=== PATIENT | female | born 1935 | race Caucasian/White ===

== ENCOUNTER 2024-01-13 22:15 | Inpatient (IN) | payer MEDICARE ==
[~2024-01-13] VITALS: Ht 157.5 cm; Wt 73.9 kg
[2024-01-13 23:03] LABS: CALCIUM 9.3 mg/dL (8.5-10.1); CARBON DIOXIDE 34 mmol/L (21-32); CHLORIDE 101 mmol/L (98-107); CREATININE 1.2 mg/dL (0.6-1.3); GLUCOSE 133 mg/dL (74-106); POTASSIUM 3.9 mmol/L (3.5-5.1); SODIUM SERUM 140 mmol/L (136-145); UREA NITROGEN, BLOOD 40 mg/dL (7-18)
[2024-01-13 23:17] LABS: ALANINE AMINOTRANSFERASE 15 U/L (14-59); ALBUMIN 2.9 g/dL (3.4-5.0); ALKALINE PHOSPHATASE 135 U/L (50-136); ASPARTATE AMINOTRANSFERASE 26 U/L (15-37); BILIRUBIN,DIRECT 1.3 mg/dL (0.0-0.2); BILIRUBIN,TOTAL 2.3 mg/dL (0.2-1.0); NT-PRO BNP 4611 pg/mL (0-125); TOTAL PROTEIN, SERUM 6.1 g/dL (6.4-8.2)
[2024-01-13] MEDS: FUROSEMIDE 20 MG/2 ML VIAL IV ONE (23:38)
[2024-01-13] MEDS ORDERED: BENZONATATE 100 MG CAPSULE ONE (23:50)
[2024-01-13] MEDS: BENZONATATE 100 MG CAPSULE PO ONE (23:53)
[2024-01-14 00:13] LABS: BASOPHILS % (AUTO) 0.1 % (0.0-2.0); EOSINOPHILS # (AUTO) 0.1 K/uL (0.0-0.7); EOSINOPHILS % (AUTO) 1.1 % (0.0-7.0); HEMATOCRIT 33.9 % (31.2-41.9); HEMOGLOBIN 10.6 g/dL (10.9-14.3); LYMPHOCYTES # (AUTO) 1.3 K/uL (0.8-4.8); LYMPHOCYTES % (AUTO) 11.5 % (20.5-51.5); MEAN CORPUSCULAR HEMOGLOBIN 26.8 uug (24.7-32.8); MEAN CORPUSCULAR HGB CONC 31 g/dL (32.3-35.6); MEAN CORPUSCULAR VOLUME 85.5 fL (75.5-95.3); MONOCYTES # (AUTO) 1.1 K/uL (0.1-1.30); MONOCYTES % (AUTO) 9.7 % (0.0-11.0); NEUTROPHILS # (AUTO) 8.6 K/uL (1.8-8.9); NEUTROPHILS % (AUTO) 77.6 % (38.5-71.5); PLATELET COUNT (AUTO) 95 K/uL (179-408); RED BLOOD CELL COUNT(AUTO) 3.96 MIL/uL (3.63-4.92); RED CELL DISTRIBUTION WIDTH 22.2 % (12.3-17.7); WHITE BLOOD COUNT (AUTO) 11.1 K/uL (3.8-11.8)
[2024-01-14 00:17] LABS: DIFFERENTIAL COMMENT 1
[2024-01-14] MEDS ORDERED: FURO40TA5 PO (04:17)
[2024-01-14] MEDS ORDERED: PANT40TA49 PO (04:17)
[2024-01-14] MEDS ORDERED: MAGN400T40 PO (04:17)
[2024-01-14] MEDS ORDERED: [UNRECOGNIZED DRUG - OTHER] ALT NOSTRI (04:17)
[2024-01-14] MEDS ORDERED: SENN8.6T19 PO (04:17)
[2024-01-14] MEDS ORDERED: HYDR-894 PO (04:17)
[2024-01-14] MEDS ORDERED: FERR325T28 PO (04:17)
[2024-01-14] MEDS ORDERED: LEVO100T10 PO (04:17)
[2024-01-14] MEDS ORDERED: MAGN400O6 PO (04:17)
[2024-01-14] MEDS ORDERED: PHENOL ALT NOSTRI (04:17)
[2024-01-14] MEDS ORDERED: ACET-73 PO (04:17)
[2024-01-14] MEDS ORDERED: ASPI81TA31 PO (04:17)
[2024-01-14] MEDS ORDERED: NA P133E RC (04:17)
[2024-01-14] MEDS ORDERED: POTA-88 PO (04:17)
[2024-01-14] MEDS ORDERED: MULT-225 PO (04:17)
[2024-01-14] MEDS ORDERED: MELA3CAP2 PO (04:17)
[2024-01-14] MEDS ORDERED: BISA10SU61 RC (04:17)
[2024-01-14] MEDS ORDERED: CLOTRIMAZOLE PO (04:17)
[2024-01-14] MEDS ORDERED: CARV6.252 PO (04:17)
[2024-01-14] MEDS ORDERED: ROSU20TA2 PO (04:17)
[2024-01-14] MEDS ORDERED: REMEDY ESSENTIAL ZINC PASTE 113 GM TP PRN (04:30)
[2024-01-14] MEDS ORDERED: ONDANSETRON 4 MG/2 ML VIAL IV PRN (04:30)
[2024-01-14] MEDS ORDERED: MAGNESIUM HYDROXIDE 30 ML LIQUID UDC PO PRN ×2 (04:30→05:15)
[2024-01-14] MEDS ORDERED: SENNOSIDES 1 TABLET PO PRN (05:15)
[2024-01-14] MEDS ORDERED: hydrALAZINE HCL 25 MG TABLET PO PRN (05:15)
[2024-01-14] MEDS ORDERED: BISACODYL 10 MG SUPP.RECT RC PRN (05:15)
[2024-01-14] MEDS ORDERED: FLEET ENEMA 133 ML BOTTLE RC PRN (05:15)
[2024-01-14] MEDS ORDERED: Medication Not On Formulary EA (Melatonin 3 MG) PO PRN (05:15)
[2024-01-14] MEDS ORDERED: MELATONIN 3 MG TABLET PO PRN (06:00)
[2024-01-14] MEDS: LEVOTHYROXINE SODIUM 100 MCG TABLET PO SCH (06:21)
[2024-01-14] MEDS: PANTOPRAZOLE SODIUM 40 MG TABLET.DR PO SCH (06:22)
[2024-01-14 08:07] VITALS: BP 142/83; TEMP 97.6; O2SAT 100
[2024-01-14] MEDS ORDERED: Medication Not On Formulary EA (Multivitamins (Multiple Vitamin) 1 EACH) PO SCH (09:00)
[2024-01-14] MEDS ORDERED: FUROSEMIDE 40 MG TABLET PO SCH (09:00)
[2024-01-14] MEDS ORDERED: POTASSIUM CHLORIDE 40 MEQ PO SCH (09:00)
[2024-01-14] MEDS: CARVEDILOL 6.25 MG TABLET PO SCH (09:11)
[2024-01-14] MEDS: FUROSEMIDE 20 MG/2 ML VIAL IV SCH (09:12)
[2024-01-14] MEDS: MULTIVIT, IRON, MIN NO. 8, FA TABLET PO SCH (09:12)
[2024-01-14 10:29] LABS: BILIRUBIN,DIRECT 1.5 mg/dL (0.0-0.2); BILIRUBIN,TOTAL 2.9 mg/dL (0.2-1.0); CALCIUM 9.4 mg/dL (8.5-10.1); CREATININE 1.2 mg/dL (0.6-1.3); MAGNESIUM 1.7 mg/dL (1.8-2.4); PHOSPHOROUS 2.6 mg/dL (2.5-4.9); POTASSIUM 3.6 mmol/L (3.5-5.1); TOTAL PROTEIN, SERUM 6.2 g/dL (6.4-8.2)
[2024-01-14 11:05] LABS: THYROID STIMULATING HORMONE 10.232 mIU/mL (0.358-3.740)
[2024-01-14 12:00] VITALS: BP 97/59; TEMP 97.6; O2SAT 100
[2024-01-14] MEDS: ASPIRIN 81 MG TAB.CHEW PO SCH (13:27)
[2024-01-14 14:29] LABS: BASOPHILS % (AUTO) 0.1 % (0.0-2.0); EOSINOPHILS # (AUTO) 0.1 K/uL (0.0-0.7); EOSINOPHILS % (AUTO) 0.9 % (0.0-7.0); HEMATOCRIT 33.5 % (31.2-41.9); HEMOGLOBIN 10.4 g/dL (10.9-14.3); LYMPHOCYTES # (AUTO) 0.7 K/uL (0.8-4.8); LYMPHOCYTES % (AUTO) 7.9 % (20.5-51.5); MEAN CORPUSCULAR HEMOGLOBIN 26.6 uug (24.7-32.8); MEAN CORPUSCULAR HGB CONC 31 g/dL (32.3-35.6); MEAN CORPUSCULAR VOLUME 85.4 fL (75.5-95.3); MONOCYTES # (AUTO) 0.7 K/uL (0.1-1.30); MONOCYTES % (AUTO) 7.8 % (0.0-11.0); NEUTROPHILS # (AUTO) 7.2 K/uL (1.8-8.9); NEUTROPHILS % (AUTO) 83.3 % (38.5-71.5); PLATELET COUNT (AUTO) 80 K/uL (179-408); RED BLOOD CELL COUNT(AUTO) 3.92 MIL/uL (3.63-4.92); RED CELL DISTRIBUTION WIDTH 23.6 % (12.3-17.7); WHITE BLOOD COUNT (AUTO) 8.7 K/uL (3.8-11.8)
[2024-01-14 16:00] VITALS: BP 124/59; TEMP 97.6; O2SAT 98
[2024-01-14] MEDS: FERROUS SULFATE 325 MG TABEC PO SCH (16:48)
[2024-01-14] MEDS: MAGNESIUM OXIDE 400 MG TABLET PO SCH (16:48)
[2024-01-14] MEDS: ACETAMINOPHEN 325 MG TABLET PO PRN (19:48)
[2024-01-14 19:50] VITALS: BP 112/66; TEMP 97.7; O2SAT 97
[2024-01-14] MEDS: ATORVASTATIN 40 MG TABLET PO SCH (20:21)
[2024-01-14] MEDS ORDERED: Medication Not On Formulary EA (Rosuvastatin Calcium (Crestor) 20 MG) PO SCH (21:00)
[2024-01-14 23:40] VITALS: BP 124/63; TEMP 97.3; O2SAT 97
[2024-01-15] VITALS (9 sets, daily range): BP systolic 98–117; BP diastolic 41–58; TEMP 97–98.6; O2SAT 96–99
[2024-01-15] MEDS: LEVOTHYROXINE SODIUM 150 MCG TABLET PO SCH (06:08)
[2024-01-15 06:50] LABS: ALBUMIN 2.5 g/dL (3.4-5.0); BILIRUBIN,DIRECT 1.6 mg/dL (0.0-0.2); BILIRUBIN,TOTAL 2.8 mg/dL (0.2-1.0); CREATININE 1.1 mg/dL (0.6-1.3); POTASSIUM 3.3 mmol/L (3.5-5.1); TOTAL PROTEIN, SERUM 5.4 g/dL (6.4-8.2)
[2024-01-15] MEDS: FUROSEMIDE 40 MG TABLET PO SCH (08:45)
[2024-01-15] MEDS: IPRATROPIUM BROMIDE 0.5 MG/2.5 ML NEBU NEB SCH (13:30)
[2024-01-15] MEDS: ALBUTEROL SULFATE 2.5 MG/ 0.5 ML NEBU NEB SCH (13:30)
[2024-01-15] MEDS: AZITHROMYCIN IV 500 MG in IV DEXTROSE 5% 250 ML IV SCH (13:45)
[2024-01-15] MEDS: POTASSIUM CHLORIDE 20 MEQ TAB.PRT.SR PO ONE (13:52)
[2024-01-15] MEDS: ENSURE ENLIVE (VAN) 240 ML LIQUID PO SCH (17:41)
[2024-01-15] MEDS ORDERED: IPRATROPIUM BROMIDE 0.5 MG/2.5 ML NEBU ONE ×2 (19:11→23:53)
[2024-01-15] MEDS ORDERED: ALBUTEROL SULFATE 2.5 MG/3 ML NEBU ONE ×2 (19:11→23:53)
[2024-01-15] MEDS: GUAIFENESIN/DEXTROMETHORPHAN 5 ML UDC PO PRN (19:38)
[2024-01-16] VITALS (15 sets, daily range): BP systolic 99–134; BP diastolic 56–77; TEMP 97.5–98.3; O2SAT 97–99
[2024-01-16 06:53] LABS: BASOPHILS % (AUTO) 0.3 % (0.0-2.0); EOSINOPHILS # (AUTO) 0.1 K/uL (0.0-0.7); EOSINOPHILS % (AUTO) 1.8 % (0.0-7.0); HEMATOCRIT 31.3 % (31.2-41.9); LYMPHOCYTES # (AUTO) 0.8 K/uL (0.8-4.8); LYMPHOCYTES % (AUTO) 13.1 % (20.5-51.5); MEAN CORPUSCULAR HGB CONC 32 g/dL (32.3-35.6); MONOCYTES # (AUTO) 0.7 K/uL (0.1-1.30); MONOCYTES % (AUTO) 11.7 % (0.0-11.0); NEUTROPHILS # (AUTO) 4.4 K/uL (1.8-8.9); NEUTROPHILS % (AUTO) 73.1 % (38.5-71.5); PLATELET COUNT (AUTO) 78 K/uL (179-408); RED BLOOD CELL COUNT(AUTO) 3.68 MIL/uL (3.63-4.92); RED CELL DISTRIBUTION WIDTH 25.5 % (12.3-17.7)
[2024-01-16 07:02] LABS: DIFFERENTIAL COMMENT 1
[2024-01-16 07:05] LABS: CALCIUM 8.6 mg/dL (8.5-10.1); POTASSIUM 3.2 mmol/L (3.5-5.1)
[2024-01-16 11:18] LABS: ANISOCYTOSIS 1+; LYMPHOCYTES % (MANUAL) 10 % (20-40); MONOCYTES % (MANUAL) 6 % (2-10); NEUTROPHILS % (MANUAL) 84 % (42-75); PLATELET ESTIMATE DECREASED
[2024-01-16 11:19] LABS: HYPOCHROMASIA 1+; OVALOCYTES 1+; TEAR DROP CELLS 1+
[2024-01-16] MEDS: POTASSIUM CHLORIDE 20 MEQ TAB.PRT.SR PO SCH (11:26)
[2024-01-17] VITALS (15 sets, daily range): BP systolic 101–126; BP diastolic 46–76; TEMP 97.4–98; O2SAT 97–99
[2024-01-17] MEDS ORDERED: GUAI5SYR PO (09:55)
[2024-01-17] MEDS ORDERED: IPRA0.2S6 NEB (09:55)
[2024-01-17] MEDS ORDERED: PANT40TA49 PO (09:55)
[2024-01-17] MEDS ORDERED: ALBU2.5V13 NEB (09:55)
[2024-01-17] MEDS ORDERED: AZIT250T13 PO (09:55)
[2024-01-17] MEDS ORDERED: Multivit, Iron, Min No. 8, Fa PO (09:55)
[2024-01-17] MEDS ORDERED: MELA3TAB41 PO (09:55)
[2024-01-17] MEDS ORDERED: LEVO150T PO (09:55)
[2024-01-17 10:13] LABS: CALCIUM 8.9 mg/dL (8.5-10.1); POTASSIUM 3.2 mmol/L (3.5-5.1)
[2024-01-17] MEDS: POTASSIUM CHLORIDE 20 MEQ TAB.PRT.SR PO ONE (13:06)
[2024-01-18] VITALS (11 sets, daily range): BP systolic 96–109; BP diastolic 55–61; TEMP 97.3–97.8; O2SAT 96–99
[2024-01-18 07:18] LABS: CHLORIDE 96 mmol/L (98-107); GLUCOSE 94 mg/dL (74-106); MAGNESIUM 1.6 mg/dL (1.8-2.4); POTASSIUM 3.4 mmol/L (3.5-5.1); SODIUM SERUM 138 mmol/L (136-145); UREA NITROGEN, BLOOD 26 mg/dL (7-18)
[2024-01-18 08:04] LABS: CARBON DIOXIDE 39 mmol/L (21-32)
[2024-01-18] MEDS ORDERED: POTASSIUM CHLORIDE 20 MEQ POWDER PACKET GT ONE (08:30)
[2024-01-18] MEDS: MAGNESIUM SULFATE/D5W 100 ML IV SCH (09:35)
[2024-01-18] MEDS: methylPREDNISolone SOD SUCC 125 MG/2 ML VIAL IV ONE (10:59)
[2024-01-18] MEDS: POTASSIUM CHLORIDE 20 MEQ TAB.PRT.SR PO ONE (12:54)
[2024-01-18] MEDS: AZITHROMYCIN 250 MG TABLET PO SCH (13:12)
[2024-01-18] MEDS: POTASSIUM CHLORIDE 50 ML IV SCH (13:52)
[2024-01-18] MEDS: methylPREDNISolone SOD SUCC 40 MG/ML VIAL IV SCH (15:08)
[2024-01-19] MEDS ORDERED: ALPRAZOLAM 0.5 MG TABLET PO SCH (00:15)
[2024-01-19 01:06] VITALS: O2SAT 98
[2024-01-19 01:15] VITALS: O2SAT 99
[2024-01-19 06:12] VITALS: BP 135/76; TEMP 97.6; O2SAT 98
[2024-01-19 07:48] VITALS: O2SAT 97
[2024-01-19 07:58] VITALS: O2SAT 99
[2024-01-19] MEDS ORDERED: MAGNESIUM OXIDE 400 MG TABLET PO SCH ×2 (09:00)
[2024-01-19 10:00] LABS: CALCIUM 9.5 mg/dL (8.5-10.1); CREATININE 1.1 mg/dL (0.6-1.3); POTASSIUM 4.1 mmol/L (3.5-5.1)
[2024-01-19] MEDS ORDERED: PRED20TA PO (10:16)
[2024-01-19] MEDS ORDERED: POTASSIUM CHLORIDE 20 MEQ TAB.PRT.SR PO ONE (10:20)
[2024-01-19 10:46] LABS: ABG BASE EXCESS 13.4 mmol/L (-2.0-2.0); ABG HCO3 38.8 mmol/L (22.0-26.0); ABG PCO2 53.3 mmHg (35.0-48.0); ABG PO2 82.1 mmHg (75.0-100.0); ABG SITE LEFT RADIAL; ABG TOTAL HEMOGLOBIN 11.6 G/dL (12.0-16.0); AaDO2 96.5 mmHg; COHb 1.3 % (0.0-3.9); O2Hb 95.3 % (94.0-97.0)
[2024-01-19 11:12] VITALS: BP 123/52; TEMP 97.7; O2SAT 98
== END 2024-01-19 13:30 | DRG 280 ==
LOC: ER 22:25 → TELE3 01-14 04:30 → MEDSURG3 01-17 08:30
PROVIDERS: ADMIT Nurse Practitioner Family; ATTEND Nurse Practitioner Acute Care
PROC: 05HB33Z Insertion of Infusion Device into Right Basilic Vein, Percutaneous Approach (ICD-10-PCS; principal; 2024-01-17)
DX: I13.0 Hypertensive heart and chronic kidney disease with heart failure and stage 1 through stage 4 chronic kidney disease, or unspecified chronic kidney disease (principal); I50.33 Acute on chronic diastolic (congestive) heart failure; I21.A1 Myocardial infarction type 2; J96.01 Acute respiratory failure with hypoxia; I48.20 Chronic atrial fibrillation, unspecified; E44.0 Moderate protein-calorie malnutrition; J45.901 Unspecified asthma with (acute) exacerbation; J20.9 Acute bronchitis, unspecified; N18.30 Chronic kidney disease, stage 3 unspecified; E88.09 Other disorders of plasma-protein metabolism, not elsewhere classified; Z68.29 Body mass index [BMI] 29.0-29.9, adult; J06.9 Acute upper respiratory infection, unspecified; Z79.01 Long term (current) use of anticoagulants; Z95.0 Presence of cardiac pacemaker; R74.01 Elevation of levels of liver transaminase levels; D53.9 Nutritional anemia, unspecified; Z95.818 Presence of other cardiac implants and grafts; Z96.642 Presence of left artificial hip joint; M15.9 Polyosteoarthritis, unspecified; E03.9 Hypothyroidism, unspecified; Z91.81 History of falling; I44.4 Left anterior fascicular block; I27.20 Pulmonary hypertension, unspecified; I08.1 Rheumatic disorders of both mitral and tricuspid valves; I25.10 Atherosclerotic heart disease of native coronary artery without angina pectoris; G89.29 Other chronic pain; F41.9 Anxiety disorder, unspecified; E78.5 Hyperlipidemia, unspecified; Z66 Do not resuscitate; Z79.899 Other long term (current) drug therapy; Z88.2 Allergy status to sulfonamides
CPT/HCPCS: 36415; 36600; 70030-TC; 71045; 78580; 82785; 83735; 84100; 84443; 84481; 84484; 85025; 85730; 86140; 93005; 93307; 94640; 94664; 94760; A4606; A4663; A6209; A6213; A9540; G0378; J0456; J1940; J2919; J3475; J3480; J3590; J7050; Q0144